=== PATIENT | female | born 1985 | race Caucasian/White ===

== ENCOUNTER 2017-07-09 18:51 | Emergency (ER) | payer OTHER, BC ==
[2017-07-09] MEDS: KETOROLAC 30 MG INJ IM (22:04)
[2017-07-09] MEDS: ONDANSETRON (ODT) 4 MG TAB ODT (22:04)
== END 2017-07-09 23:24 | disposition home or self-care (01) ==
LOC: FTE 18:51
DX: J10.1 Influenza due to other identified influenza virus with other respiratory manifestations (principal)
CPT/HCPCS: 71045; 87400; 96372; 99284-25